=== PATIENT | female | born 1950 | race Caucasian/White ===

== ENCOUNTER 2017-09-16 12:41 | Emergency (ER) | payer MEDICARE, BC ==
[~2017-09-16] VITALS: Ht 160 cm; Wt 86.0 kg
--- NOTE | 2017-09-16 12:46 | PD ---
HPI Chief Complaint: Respiratory Symptoms Time Seen by Provider: 12:46 Travel History International Travel<30 days: No Contact w/Intl Traveler<30days: No Traveled to known affect area: No History of Present Illness HPI 67-year-old female came to the emergency room complaining of right-sided neck pain going down into her upper part of the chest on the right side since this morning. Patient says that pain is worse when she takes a deep breath. She is concerned of thoracic outlet syndrome since she was diagnosed with thoracic outlet syndrome in her 20s. Upon asking she said it was because of a x-ray and rib she has. However patient does not seem to have any facial congestion or puffiness. Vital signs were stable. She appeared anxious but no significant distress. Patient is from [place] and if she is spending her winter here. FORMERLY [facility] Past Medical History Narrative Medical List of her past medical, surgical, social and family history is reviewed from the nursing note. Social History Tobacco Use: No Allergies-Medications (Allergen,Severity, Reaction): Coded Allergies: amitriptyline (Verified Allergy, Severe, DOESN'T KNOW, 09/16/17) montelukast (Verified Allergy, Severe, RASH, 09/16/17) pregabalin (Verified Allergy, Severe, DOESN'T KNOW, 09/16/17) amlodipine (Verified Adverse Reaction, Severe, HEADACHE, 09/16/17) atorvastatin (Verified Adverse Reaction, Severe, STOMACH CRAMPS, 09/16/17) bupropion (Verified Adverse Reaction, Severe, WILD DREAMS, 09/16/17) cyclobenzaprine (Verified Adverse Reaction, Severe, CONFUSION, 09/16/17) diltiazem (Verified Adverse Reaction, Severe, FLUSHING, 09/16/17) duloxetine (Verified Adverse Reaction, Severe, NIGHTMARES, 09/16/17) ezetimibe (Verified Adverse Reaction, Severe, CHEST PAIN, 09/16/17) sulfamethoxazole (Verified Adverse Reaction, Severe, RENAL FAILURE, ) trimethoprim (Verified Adverse Reaction, Severe, RENAL FAILURE, 09/16/17) Uncoded Allergies: BETA BLOCKERS (Adverse Reaction, Severe, WEAKNESS, 09/16/17) Comments List of her allergies reviewed from the nursing note. Reported Meds & Prescriptions Reported Meds & Active Scripts Active Reported Flovent Hfa 12 GM Inh (Fluticasone Propionate) 110 Mcg/Act Inh 1 Puff INH BID Proair Hfa 8.5 GM Inh (Albuterol Sulfate) 90 Mcg/Act Aer 1 Puff INH Q4H PRN 108 mcg/actuation Temazepam 30 Mg Cap 30 Mg PO HS PRN Oxycodone (Oxycodone HCl) 10 Mg Tab 10 Mg PO Q8H PRN Metoprolol Tartrate 25 Mg Tab 12.5 Mg PO BID Hydralazine HCl 25 Mg Tablet 25 Mg PO DAILY Vitamin D3 (Cholecalciferol) 2,000 Unit Cap 2,000 Units PO DAILY Crestor (Rosuvastatin Calcium) 5 Mg Tab 5 Mg PO DAILY Buspirone (Buspirone HCl) 5 Mg Tab 5 Mg PO TID Narrative Medication List of her home medication reviewed from the nursing note. Review of Systems Except as stated in HPI: all other systems reviewed are Neg Musculoskeletal: Positive: Pain Physical Exam Narrative GENERAL: Awake, alert, anxious, mild distress SKIN: Focused skin assessment warm/dry. No skin discoloration noticed HEAD: Atraumatic. Normocephalic. EYES: Pupils equal and round. No scleral icterus. No injection or drainage. ENT: No nasal bleeding or discharge. Mucous membranes pink and moist. NECK: Trachea midline. No JVD. Tender to light touch on the right side of her neck and shoulder CARDIOVASCULAR: Regular rate and rhythm. No murmur appreciated. RESPIRATORY: No accessory muscle use. Clear to auscultation. Breath sounds equal bilaterally. GASTROINTESTINAL: Abdomen soft, non-tender, nondistended. Hepatic and splenic margins not palpable. MUSCULOSKELETAL: No obvious deformities. No clubbing. No cyanosis. No edema. NEUROLOGICAL: Awake and alert. No obvious cranial nerve deficits. Motor grossly within normal limits. Normal speech. PSYCHIATRIC: Appropriate mood and affect; insight and judgment normal. Data Data Last Documented VS Vital Signs Date Time Temp Pulse Resp B/P (MAP) Pulse Ox O2 Delivery O2 Flow Rate FiO2 09/16/17 20:32 09/16/17 20:13 92 16 97 Room Air 09/16/17 13:01 97.8 Orders Orders Complete Blood Count With Diff (09/16/17 12:57) Basic Metabolic Panel (Bmp) (09/16/17 12:57) D-Dimer (09/16/17 12:57) Troponin I (09/16/17 12:57) Iv Access Insert/Monitor (09/16/17 12:57) Electrocardiogram (09/16/17 12:57) Ecg Monitoring (09/16/17 12:57) Oximetry (09/16/17 12:57) Oxygen Administration (09/16/17 12:57) Chest, Single Ap (09/16/17 12:57) ^ Saline Lock (09/16/17 13:25) Ketorolac Inj (Toradol Inj) (09/16/17 13:30) Ventilation & Perfusion Scan (09/16/17 ) Cyclobenzaprine (Flexeril) (09/16/17 19:30) Ed Discharge Order (09/16/17 19:40) Labs Laboratory Tests Test 09/16/17 13:30 White Blood Count 9.7 TH/MM3 Red Blood Count 4.73 MIL/MM3 Hemoglobin 14.5 GM/DL Hematocrit 43.9 % Mean Corpuscular Volume 92.9 FL Mean Corpuscular Hemoglobin 30.8 PG Mean Corpuscular Hemoglobin Concent 33.1 % Red Cell Distribution Width 13.1 % Platelet Count 464 TH/MM3 Mean Platelet Volume 7.9 FL Neutrophils (%) (Auto) 65.9 % Lymphocytes (%) (Auto) 21.2 % Monocytes (%) (Auto) 7.1 % Eosinophils (%) (Auto) 1.4 % Basophils (%) (Auto) 4.4 % Neutrophils # (Auto) 6.4 TH/MM3 Lymphocytes # (Auto) 2.1 TH/MM3 Monocytes # (Auto) 0.7 TH/MM3 Eosinophils # (Auto) 0.1 TH/MM3 Basophils # (Auto) 0.4 TH/MM3 CBC Comment DIFF FINAL Differential Comment D-Dimer Quantitative (PE/DVT) 1.56 MG/L FEU Blood Urea Nitrogen 6 MG/DL Creatinine 0.84 MG/DL Random Glucose 101 MG/DL Calcium Level 9.0 MG/DL Sodium Level 138 MEQ/L Potassium Level 4.8 MEQ/L Chloride Level 105 MEQ/L Carbon Dioxide Level 26.1 MEQ/L Anion Gap 7 MEQ/L Estimat Glomerular Filtration Rate 68 ML/MIN Troponin I LESS THAN 0.02 NG/ML MDM Medical Decision Making Medical Screen Exam Complete: Yes Emergency Medical Condition: Yes Medical Record Reviewed: Yes Interpretation(s) Twelve-lead EKG was reviewed by me. Differential Diagnosis PE, muscular skeletal pain, shingles Narrative Course 3:53 PM blood test results are back. Her d-dimer is elevated. Given her pleuritic chest pain my suspicion is moderately high for PE. However patient is refusing to get IV contrast since apparently she had a renal failure after receiving IV contrast in the past which required dialysis. I stated to her that her renal function was completely normal. The patient does not want to get IV contrast. I've ordered a VQ scan at this point. Case will be signed over to the oncoming ER physician. Procedures EKG Prior to Arrival: Mason Santoro MD Sep 16, 2017 12:46
[2017-09-16 13:01] VITALS: BP 138/70; PULSE 95; RESP 18; TEMP 97.8; O2SAT 97
[2017-09-16] MEDS ORDERED: FLUTI110I INH (13:21)
[2017-09-16] MEDS ORDERED: HYDR-3799 PO (13:21)
[2017-09-16] MEDS ORDERED: ROSU5 PO (13:21)
[2017-09-16] MEDS ORDERED: BUSP5TAB PO (13:21)
[2017-09-16] MEDS ORDERED: METO25TA3 PO (13:21)
[2017-09-16] MEDS ORDERED: ALBUAER3 INH (13:21)
[2017-09-16] MEDS ORDERED: OXYC-395 PO (13:21)
[2017-09-16] MEDS ORDERED: VITA2000 PO (13:21)
[2017-09-16] MEDS ORDERED: TEMA30CA PO (13:21)
[2017-09-16] MEDS ORDERED: KETOROLAC TROMETHAMINE 30 MG/ML (IVP) VIAL IV PUSH ONE (13:30)
[2017-09-16 13:36] VITALS: RESP 18; O2SAT 97
--- NOTE | 2017-09-16 13:43 | RADRPT ---
EXAM DATE/TIME: 09/16/2017 13:07 [facility] COMPARISON: No previous studies available for comparison. INDICATIONS : Short of breath. MEDICAL HISTORY : Thoracic outlet syndrome. SURGICAL HISTORY : Left shoulder replacement. ENCOUNTER: Initial ACUITY: 1 day PAIN SCORE: 0/10 LOCATION: chest FINDINGS: A single view of the chest demonstrates the lungs to be symmetrically aerated without evidence of mas s, infiltrate or effusion. The cardiomediastinal contours are unremarkable. Osseous structures are intact. CONCLUSION: No acute disease. Wesly Andersen MD on September 16, 2017 at 13:41 Board Certified Radiologist. This report was verified electronically.
[2017-09-16 13:47] LABS: CHLORIDE 105 MEQ/L (98-107); SODIUM (NA) 138 MEQ/L (136-145)
[2017-09-16 13:49] LABS: BICARBONATE 26.1 MEQ/L (21.0-32.0); BLOOD UREA NITROGEN 6 MG/DL (7-18); GLUCOSE,RANDOM 101 MG/DL (74-106)
[2017-09-16 13:52] LABS: CREATININE 0.84 MG/DL (0.50-1.00); GLOMERULAR FILTRATION RATE 68 ML/MIN (>89)
[2017-09-16 13:55] LABS: AUTOMATED NEUTROPHIL # 6.4 TH/MM3 (1.8-7.7); BASOPHIL # 0.4 TH/MM3 (0-0.2); BASOPHIL % 4.4 % (0.0-2.0); EOSINOPHIL # 0.1 TH/MM3 (0-0.4); EOSINOPHIL % 1.4 % (0.0-4.0); HEMATOCRIT 43.9 % (35.0-46.0); HEMOGLOBIN 14.5 GM/DL (11.6-15.3); LYMPH % 21.2 % (9.0-44.0); LYMPHOCYTE # 2.1 TH/MM3 (1.0-4.8); MEAN CELL VOLUME 92.9 FL (80.0-100.0); MEAN CORPUSCULAR HEMOGLOBIN 30.8 PG (27.0-34.0); MEAN CORPUSCULAR HGB CONC 33.1 % (32.0-36.0); MEAN PLATELET VOLUME 7.9 FL (7.0-11.0); MONO % 7.1 % (0.0-8.0); MONOCYTE # 0.7 TH/MM3 (0-0.9); NEUT % 65.9 % (16.0-70.0); PLATELET COUNT 464 TH/MM3 (150-450); RED BLOOD COUNT 4.73 MIL/MM3 (4.00-5.30); RED CELL DISTRIBUTION WIDTH 13.1 % (11.6-17.2); WHITE BLOOD COUNT 9.7 TH/MM3 (4.0-11.0)
[2017-09-16 13:56] LABS: TROPONIN I LESS THAN 0.02 NG/ML (0.02-0.05)
[2017-09-16 15:24] VITALS: BP 115/72; PULSE 90; RESP 20; O2SAT 95
[2017-09-16 16:50] VITALS: BP 124/76; PULSE 88; RESP 20; O2SAT 97
[2017-09-16 18:35] VITALS: BP 131/63; PULSE 83; RESP 17; O2SAT 98
--- NOTE | 2017-09-16 18:48 | RADRPT ---
EXAM DATE/TIME: 09/16/2017 17:50 [facility] COMPARISON: No previous studies available for comparison. INDICATIONS : Right neck and chest pain. DOSE: 1.4 mCi Tc99m DTPA 8.2 mCi Tc99m MAA MEDICAL HISTORY : Hypertension. SURGICAL HISTORY : Left shoulder replacement. ENCOUNTER: Initial ACUITY: 1 day PAIN SCALE: 3/10 LOCATION: Right chest TECHNIQUE: Following five minutes of tidal breathing of DTPA aerosol, planar images of the lungs were performed in eight projections. The patient was then injected with MAA, and eight-view perfusion scan was perf ormed. FINDINGS: There is a homogeneous pattern of aerosol delivery to the periphery of both lungs. No focal ventilat ory defects are seen. The perfusion lung scan demonstrates a homogenous pattern of uptake in both lungs. No segmental or s ubsegmental defects are seen. CONCLUSION: 1. Negative for pulmonary embolus. Vinay Nelson MD on September 16, 2017 at 18:45 Board Certified Radiologist. This report was verified electronically.
[2017-09-16] MEDS ORDERED: CYCLOBENZAPRINE HCL 10 MG TAB PO ONE (19:30)
--- NOTE | 2017-09-16 19:39 | PD ---
Physical Exam Narrative Patient signed out to me by Dr. Waldron, please see her documentation for complete details. Briefly, patient is a 67 year old female who comes in complaining of right sided neck pain with some shortness of breath. She has had bronchitis and pneumonia in the past month. She was treated with steroids and antibiotics, but says she continues to feel short of breath. Exam shows lungs to be clear to auscultation. She has some pain with movement of her neck . Data Data Last Documented VS Vital Signs Date Time Temp Pulse Resp B/P (MAP) Pulse Ox O2 Delivery O2 Flow Rate FiO2 09/16/17 18:35 83 17 131/63 (85) 98 Room Air 09/16/17 13:01 97.8 Orders Orders Complete Blood Count With Diff (09/16/17 12:57) Basic Metabolic Panel (Bmp) (09/16/17 12:57) D-Dimer (09/16/17 12:57) Troponin I (09/16/17 12:57) Iv Access Insert/Monitor (09/16/17 12:57) Electrocardiogram (09/16/17 12:57) Ecg Monitoring (09/16/17 12:57) Oximetry (09/16/17 12:57) Oxygen Administration (09/16/17 12:57) Chest, Single Ap (09/16/17 12:57) ^ Saline Lock (09/16/17 13:25) Ketorolac Inj (Toradol Inj) (09/16/17 13:30) Ventilation & Perfusion Scan (09/16/17 ) Cyclobenzaprine (Flexeril) (09/16/17 19:30) Labs Laboratory Tests Test 09/16/17 13:30 White Blood Count 9.7 TH/MM3 Red Blood Count 4.73 MIL/MM3 Hemoglobin 14.5 GM/DL Hematocrit 43.9 % Mean Corpuscular Volume 92.9 FL Mean Corpuscular Hemoglobin 30.8 PG Mean Corpuscular Hemoglobin Concent 33.1 % Red Cell Distribution Width 13.1 % Platelet Count 464 TH/MM3 Mean Platelet Volume 7.9 FL Neutrophils (%) (Auto) 65.9 % Lymphocytes (%) (Auto) 21.2 % Monocytes (%) (Auto) 7.1 % Eosinophils (%) (Auto) 1.4 % Basophils (%) (Auto) 4.4 % Neutrophils # (Auto) 6.4 TH/MM3 Lymphocytes # (Auto) 2.1 TH/MM3 Monocytes # (Auto) 0.7 TH/MM3 Eosinophils # (Auto) 0.1 TH/MM3 Basophils # (Auto) 0.4 TH/MM3 CBC Comment DIFF FINAL Differential Comment D-Dimer Quantitative (PE/DVT) 1.56 MG/L FEU Blood Urea Nitrogen 6 MG/DL Creatinine 0.84 MG/DL Random Glucose 101 MG/DL Calcium Level 9.0 MG/DL Sodium Level 138 MEQ/L Potassium Level 4.8 MEQ/L Chloride Level 105 MEQ/L Carbon Dioxide Level 26.1 MEQ/L Anion Gap 7 MEQ/L Estimat Glomerular Filtration Rate 68 ML/MIN Troponin I LESS THAN 0.02 NG/ML MDM Supervised Visit with [facility]: No Narrative Course Labs sent show an elevated d-dimer. V/Q scan shows no acute abnormalities, no evidence of PE. Patient given Toradol and flexeril. Advised to follow up with her doctors. Advised to take Tylenol as needed for pain. Advised to return to the ED as needed for any worsening symptoms. Diagnosis Primary Impression: Neck pain Additional Impression: Shortness of breath Patient Instructions: General Instructions, Musculoskeletal Pain (ED), Shortness of Breath (ED) Additional Instruction: Take Tylenol as needed for pain. Follow-up with your doctor. Return anytime for any worsening symptoms. Disposition: 01 DISCHARGE HOME Condition: Stable Era Guzman MD Sep 16, 2017 19:39
[2017-09-16 20:13] VITALS: BP 135/64; PULSE 92; RESP 16; O2SAT 97
--- NOTE | 2017-09-18 01:37 | EKG ---
Date Performed: 09/16/2017 Time Performed: 13:07:49 PTAGE: 67 years EKG: Sinus rhythm NORMAL ECG NO PREVIOUS TRACING DOCTOR: Hung Johns Interpretating Date/Time 09/18/2017 01:36:21
== END 2017-09-16 21:38 | disposition home or self-care (01) ==
LOC: PHED 12:41
DX: M54.2 Cervicalgia (principal); R06.02 Shortness of breath; I10 Essential (primary) hypertension; Z88.8 Allergy status to other drugs, medicaments and biological substances; Z79.899 Other long term (current) drug therapy
CPT/HCPCS: 71045; 78582; 80048; 84484; 85025; 85379; 93005; 96374; 99285; A9540; A9567; J1885